=== PATIENT | male | born 1990 | race Caucasian/White ===

== ENCOUNTER 2020-04-25 21:49 | Emergency (ER) | payer SELFPAY ==
[2020-04-25 21:50] VITALS: BP 159/94; PULSE 112; RESP 20; TEMP 36.3; O2SAT 99; BMI 29.2
--- NOTE | 2020-04-25 22:00 | ED.DCSUM_ITS ---
History of Present Illness Chief Complaint: Lower Extremity Injury Informant: Patient Onset: Today Current Severity: Mild Maximum Severity: Moderate Narrative: Patient presents with right foot pain after slipping off his deck. He states he fell approximately 3 feet, landed on a rock and rolled his right ankle. He has pain over the right midfoot and lateral right ankle. He has been able to weight-bear but has antalgic gait. He denies any other injury. Past Medical History - Allergies and Home Meds Allergies/Adverse Reactions: Allergies No Known Allergies Allergy (Verified 04/25/20 21:59) Primary Care Physician: Care Physician,No Primary [Primary Care Provider] - Past Medical History: None Smoking Status: Current every day smoker Review of Systems General: Denies: Chills, Fever Eyes: Denies: Visual changes - bilaterally ENT: Denies: Bilateral ear pain Cardiovascular: Denies: Chest pain Respiratory: Denies: Dyspnea Gastrointestinal: Denies: Abdominal pain Musculoskeletal: Reports: Swelling, Extremity Pain Skin: Denies: Rash Neurological: Denies: Headache Hematologic: Denies: Easy bruising, Easy bleeding Allergy: Denies: Uticaria Physical Exam Vital Signs/Narrative: Vital Signs Temp Pulse Resp BP Pulse Ox 04/25/20 21:50 97.4 F L 112 H 20 H 159/94 H 99 Inital Vital Signs reviewed: Yes General: Well nourished, Well developed Head: Normocephalic Neck: Supple Cardiovascular: Regular rate, Regular rhythm Respiratory: No distress, CTA bilaterally Abdomen: Soft, Nontender Extremities: - - Tenderness palpation of the right midfoot with mild edema. Tenderness to the right lateral malleolus. No tenderness at the knee. Strong distal pulses with good cap refill. Skin: Normal color Neurological: Alert, Oriented x3 Psychological: Normal affect Diagnostic/Tx/Re-eval Impressions Ankle X-Ray 04/25/20 22:03 IMPRESSION: Normal x-ray examination of the ankle. Electronically Signed: Julien Mak MD at 22:28 EST , Service support , 04/25/20 22:03 Ankle min 3 Views [RAD] Stat Foot min 3 Views [RAD] Stat - Medical Decision Making Right foot and ankle x-rays are obtained and per my interpretation reveal no fracture. Patient is given naproxen for pain. Test results discussed with him and foot and ankle wrapped in Peña wrap. He will be given crutches and may weight-bear as tolerated. He is given work note stating he must be able to use crutches as needed. ED Disposition - Plan for ED Patient: Disposition: Home or Assisted Living Diagnosis: Right foot sprain Instructions: ED Foot Sprain Prescriptions: Naproxen [Naprosyn] 500 mg PO BID PRN PRN #20 tab PRN Reason: Pain Score 4-10 Transmission Status: Pending to [facility] Referrals: Timo Briseno DO [STAFF PHYSICIAN] - 1 Week if not improving
[2020-04-25] MEDS: Naproxen 500 MG Tablet PO (22:01)
--- NOTE | 2020-04-25 22:03 | RAD_ITS ---
STUDY: X-RAY - RIGHT ANKLE REASON FOR EXAM: Male, 30 years old. FALL OFF DECK, RIGHT FOOT PAIN. PAIN ALONG LATERAL SIDE OF FOOT AND LATERAL ANKLE TECHNIQUE: 3 view(s) of the ankle. COMPARISON: None. FINDINGS: Normal visualized distal tibia and fibula. Normal medial and lateral malleoli. Normal tibiotalar articulation and ankle mortise. Normal visualized talus and calcaneus. The visualized subtalar, talonavicular, calcaneocuboid and tarsal articulations are normal. There is no demonstrated fracture. The soft tissue structures are unremarkable. RAD/Ankle min 3 Views IMPRESSION: Normal x-ray examination of the ankle. Electronically Signed: Julien Mak MD at 22:28 EST , Service support ,
--- NOTE | 2020-04-25 22:03 | RAD_ITS ---
STUDY: X-RAY - RIGHT FOOT CLINICAL: Male, 30 years old. PAIN ALONG LATERAL SIDE OF FOOT AFTER FALLING OFF DECK TECHNIQUE: 3 view(s) of the foot. COMPARISON: None. FINDINGS: Normal talus, calcaneus, and tarsal bones. Normal visualized subtalar, talonavicular, calcaneocuboid, tarsal and tarsometatarsal articulations. Normal metatarsi. Normal metatarsophalangeal joint of the great toe. Normal tibial and fibular sesamoid bones. Normal interphalangeal joint of the great toe. Normal phalanges of the great toe. Normal second through fifth metatarsophalangeal joints. Normal interphalangeal joints and phalanges of the lesser toes. The soft tissue structures are unremarkable. There is no demonstrated fracture. RAD/Foot min 3 Views IMPRESSION: Normal x-ray examination of the foot. Electronically Signed: Julien Mak MD at 22:29 EST , Service support ,
== END 2020-04-25 22:45 | disposition home or self-care (01) ==
LOC: ED 22:41
PROVIDERS: Emergency Provider Emergency Medicine
DX: S93.601A Unspecified sprain of right foot, initial encounter (principal); F17.200 Nicotine dependence, unspecified, uncomplicated; W17.89XA Other fall from one level to another, initial encounter
CPT/HCPCS: 73610; 73630; 99284

== ENCOUNTER 2022-05-05 08:58 | Emergency (ER) | payer OTHER, SELFPAY ==
[2022-05-05 08:59] VITALS: BP 154/91; PULSE 72; RESP 16; TEMP 36.4; O2SAT 99; BMI 28.8
--- NOTE | 2022-05-05 09:27 | ED.RN ---
THIS RN TALKED WITH MICHAEL FROM [facility]. 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
--- NOTE | 2022-05-05 10:28 | EDS_ITS ---
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, causing a 2 arc and hit the table where his hand was, injuring his right hand Onset/Context/Timing Onset: Today Context: Sudden Onset Timing: Continuous Quality of Pain: - (So) Location: Right hand/fingers Current Severity: Mild Maximum Severity: Mild Associated Symptoms Associated Symptoms: Negative for Parasthesia, Weakness or Loss of Funtion Narrative Tetanus Immunization: 5-10 years PFSH PFS Medical History no medical history no medical history Home Medications NK 05/05/22 [History Last Taken Unknown] Allergy/AdvReac Type Severity Reaction Status Date / Time No Known Allergies Allergy Verified 05/05/22 09:05 Social History Smoking Status: Current every day smoker tobacco type: cigarettes alcohol intake: current ROS ROS ED Constitutional Constitutional ED: Denies chills or fever(s) Musculoskeletal Musculoskeletal: Reports extremity pain; Denies neck pain Integumentary Reports wounds; Denies Abrasions or rash Neurologic Neurologic: Denies paresthesias or weakness EXAM Physical Exam Const Vital Signs: 05/05/22 08:59 05/05/22 09:17 Temperature 97.6 F L Temperature Source Temporal Pulse Rate 72 Respiratory Rate 16 Respiratory Effort Normal Respiratory Depth Normal Respiratory Pattern Normal Blood Pressure 154/91 H Blood Pressure Mean 112 Pulse Ox 99 Oxygen Delivery Method Room Air Positive well nourished and well developed General Appearance ED: well developed and NAD Neck full ROM and supple Back/Spine normal ROM and normal to inspection Extremity full ROM Extremity Narrative: Patient has focal singed superficial wound/lacerations with associated first- degree parikh across the middle phalanx of the right index finger, middle finger, and ring finger. There is no bleeding, the tenderness is very mild, he has full range of motion, and these lacerations are cutaneous in depth. None are subcutaneous. Neuro oriented x3, no focal motor deficits and no sensory deficits noted Sensorium / Orientation: alert Psych mental status grossly normal and thought process normal Skin Skin Narrative: See above. Superficial wounds limited to the fingers of the right hand. Index finger 1 cm, middle finger 1 cm, ring finger 0.5 cm, small finger 0.25 cm. Rashes: no rashes MDM MDM MDM Narrative Medical decision making narrative: These are superficial wounds that are singed, there is no necrotic tissue, there is no tissue loss, and they are very superficial and I would treat them conservatively with bacitracin and a Band-Aid to all of these areas. The patient is not in a lot of pain, there is no second or third-degree burn here, I do not think any of this needs to be sutured. The patient feels he can likely continue to do his job in this condition and I am fine with that. He does not need a tetanus update. These are low risk for infection. Discharge Plan Triage Chief Complaint: Burn ED Provider: Constantino Moran Dx/Rx/DC Orders Clinical Impression: First degree burn of multiple fingers of right hand excluding thumb, Superficial laceration of finger Instructions: ED Burn, First-Degree Prescriptions: No Action NK Stand Alone Forms: Work Status Form Primary Care Provider: Care Physician,No Primary Referrals: Corporate,Care [Group of Physicians] - 3-5 Days if not improving Care Physician,No Primary [Primary Care Provider] - Disposition Disposition: Home, Self Care
== END 2022-05-05 10:42 | disposition home or self-care (01) ==
PROVIDERS: Emergency Provider Emergency Medicine; Visit Provider Emergency Medicine
DX: T23.131A Burn of first degree of multiple right fingers (nail), not including thumb, initial encounter (principal); S61.210A Laceration without foreign body of right index finger without damage to nail, initial encounter; S61.212A Laceration without foreign body of right middle finger without damage to nail, initial encounter; S61.214A Laceration without foreign body of right ring finger without damage to nail, initial encounter; F17.210 Nicotine dependence, cigarettes, uncomplicated; Y99.0 Civilian activity done for income or pay; W22.8XXA Striking against or struck by other objects, initial encounter
CPT/HCPCS: 99282

== ENCOUNTER 2024-12-31 16:09 | Emergency (ER) | payer OTHER, SELFPAY ==
[2024-12-31 16:10] VITALS: BP 155/102; PULSE 95; RESP 24; TEMP 36.4; O2SAT 100; BMI 31.5
--- NOTE | 2024-12-31 16:17 | EDS_ITS ---
HPI History of Present Illness Chief Complaint: Allergic Reaction Detail of Chief Complaint: Allergic reaction Informant: patient Onset/Context/Timing Onset: Yesterday (Reports he was stung yesterday dorsal surface right) Context: Gradual Onset Timing: Continuous Quality: Initially swelling of his hand right ring finger Location: Generalized in HPI narrative Current Severity: Moderate Maximum Severity: Moderate Worsened by: Uncertain Relieved by: Nothing Associated Symptoms Associated Symptoms: Swelling lower lip left side, throat tightness fullness Narrative Narrative: Patient is a 34-year-old male. He states he was stung by a insect it was either a wasp or hornet yesterday. He was stung dorsal surface right ring finger over the proximal phalanx. Patient states he was seen at outside facility. He was told that the swelling of his hand and fingers is normal. Patient took a nap. Upon awakening he noted the swelling of his lower lip, swelling of his neck and discomfort in his hand. He was unaware that he had a blotchy rash on his right upper extremity torso possibly face. There is swelling of the lower lip. Prior similar symptoms: No Recent Illness/Hospitalization: No PFSH PFSH Medical History no medical history Home Medications ?Medication ?Instructions ?Recorded ?Last Taken ?Type epinephrine 0.3 mg/0.3 mL 0.3 mg (0.3 mL) IM .once PRN 12/31/24 Unknown Rx injection, auto-injector (EpiPen) anaphylaxis #1 ea famotidine 20 mg tablet (Pepcid) 20 mg PO BID #7 tabs 12/31/24 Unknown Rx prednisone 20 mg tablet 60 mg (3 x 20 mg) PO DAILY # 9 12/31/24 Unknown Rx TABLETS Allergy/AdvReac Type Severity Reaction Status Date / Time No Known Allergies Allergy Verified 12/31/24 16:10 Social History Smoking Status: Current every day smoker tobacco type: cigarettes alcohol intake: current ROS ROS ED Constitutional Constitutional ED: Denies chills, fever(s), subjective or sweats Eyes Eyes: Denies blurry vision or change in vision ENT ENT ED: Denies ear pain, rhinorrhea or sore throat Cardiovascular Cardiovascular: Denies chest pain, orthopnea, palpitations, paroxysmal nocturnal dyspnea or racing heartbeat Respiratory/Chest Respiratory/Chest: Reports other Details: There is no wheezing, rhonchi ; Denies cough, dyspnea, dyspnea on exertion, orthopnea, paroxysmal nocturnal dyspnea or sputum Gastrointestinal Gastrointestinal: Denies abdominal pain, nausea or vomiting Genitourinary Genitourinary ED: Denies dysuria, hematuria or urinary frequency Musculoskeletal Musculoskeletal: Denies arthralgias, back pain or myalgias Integumentary Reports rash Neurologic Neurologic: Denies paresthesias or weakness Hematologic/Lymphatic Hematologic/Lymphatic: Reports systems reviewed and no addt'l complaints, except as documented EXAM Physical Exam Const Vital Signs: 12/31/24 16:10 12/31/24 17:09 12/31/24 18:00 Temperature 97.6 F L 98.1 F 98 F Temperature Source Temporal Oral Oral Pulse Rate 95 84 74 Respiratory Rate 24 H 14 16 Blood Pressure 155/102 H 138/79 H 136/74 H Blood Pressure Mean 119 98 94 Pulse Ox 100 99 99 Oxygen Delivery Method Room Air Positive well nourished and well developed Constitutional Narrative: Patient's hand is mottled. There is delayed capillary refill. Patient states the sensation in his fingers is abnormal. He does not have paralysis. He does not have pain with passive flexion extension. General Appearance ED: well developed and NAD; Negative for cyanotic, diaphoretic or pallor HEENT Reports moist mucous membranes HEENT Narrative: Head is atraumatic and normocephalic. Ears normal. Posterior pharynx without erythema or exudate. There is no swelling of the uvula or tongue. There is slight swelling of the lower lip on the left side. Eyes PERRL and EOMs intact bilaterally General Eye ED: Negative for pale conjunctiva or scleral icterus Neck no lymphadenopathy, supple and no JVD Chest Wall inspection of chest normal and palpation of chest normal Resp normal respiratory effort and clear to auscultation bilaterally Cardio regular rate, regular rhythm, S1 normal heart sound, S2 normal heart sound and no murmurs GI normal to inspection, nondistended, normoactive bowel sounds, non-tender, non- distended and no masses; Negative for hepatosplenomegaly Extremity Negative for normal to inspection Extremity Narrative: There is swelling of the right upper extremity from the elbow distally to his fingers. There is delayed capillary refill in his right upper extremity. He reports abnormal sensation. He was not able to discern 2 point discrimination on the right side. Neuro oriented x3, CN's II-XII intact bilaterally and No no sensory deficits noted Sensorium / Orientation: alert Psych mental status grossly normal Skin No no rashes or lesions noted, no wounds and skin turgor normal Skin Narrative: Blotchy erythematous blanching rash noted right upper extremity and torso. General Skin Exam: Negative for jaundice or pallor MDM MDM MDM Narrative Medical decision making narrative: Patient with atypical presentation for allergic reaction. Will treat with epinephrine, month Solu-Medrol, Pepcid and Benadryl. Will continue to observe. If his hand does not improve we will contact Dr. Anthony Mei since 1 needs to consider compartment syndrome. Treatment and Re-Evaluation :: Patient was reassessed at 1648. His hand is less swollen. He is no longer mottled. There is still delay in his capillary refill. He states he has more sensation in his fingers. Patient was reassessed at 1747. Patient states he feels much better. His lip is no longer swollen. His rash is resolved. His hand is not as swollen. He states he has sensation and does not have discomfort with moving of his fingers. And when asked what he meant by discomfort, he responded tightness due to the swelling. Patient was reassessed at 1849. Patient hand is less swollen. Capillary refill is within normal limits. He has more movement of his hand. His rash has resolved. His angioedema involving his lip has resolved. Critical Care Time Critical Care Time: Yes Critical care time (excluding procedures): 30-74 minutes (32), Including time spent: (History, physical, documentation, repeat evaluations during the emergency stay of 4 hours. Treatment for generalized allergic reintroduction and allergic angioedema.) and Discussing w/Patient &/or Family/[employer] Discharge Plan Triage Chief Complaint: Allergic Reaction ED Provider: Daniel Woodward Dx/Rx/DC Orders Clinical Impression: Allergic reaction, Allergic angioedema, Elevated blood pressure reading without diagnosis of hypertension Instructions: ED General Allergic Reactions, ED Angioedema, ED Hypertension, To Be Confirmed Prescriptions: New famotidine [Pepcid] 20 mg tablet 20 mg PO BID Qty: 7 0RF prednisone 20 mg tablet 60 mg PO DAILY Qty: 9 0RF epinephrine [EpiPen] 0.3 mg/0.3 mL auto-injector 0.3 mg IM .once PRN (Reason: anaphylaxis) Qty: 1 3RF Rx Instructions: for 2 doses Primary Care Provider: Care Physician,No Primary Referrals: Care Physician,No Primary [Primary Care Provider, Medical] Activity Restrictions/Additional Instructions: You need to carry the EpiPen with you at all times. You cannot leave it in your car when it is warm because it will cause the medicine to degrade. Take medication as prescribed. Your blood pressure is elevated. Recommend follow-up with your doctor for blood pressure check and 1 to 2 weeks Print Language: Belarusian Disposition Disposition: Home, Self Care
[2024-12-31] MEDS: 0.9% Normal Saline (1000mL) 1,000 ML 999 ML IV (16:21)
[2024-12-31] MEDS: Epi Pen (EQUIV) 0.3 MG Syringe IM (16:21)
[2024-12-31] MEDS: DiphenhydrAMINE 50 MG/ML Syringe IV (16:21)
[2024-12-31] MEDS: Famotidine 200 MG/20 ML MDV 20 MG in 0.9% Normal Saline (Pres. free 8 ML 300 MG IV (16:40)
[2024-12-31 17:09] VITALS: BP 138/79; PULSE 84; RESP 14; TEMP 36.7; O2SAT 99
[2024-12-31 18:00] VITALS: BP 136/74; PULSE 74; RESP 16; TEMP 36.6; O2SAT 99
--- NOTE | 2024-12-31 18:56 | CM.ED ---
Social work Reason for referral: no PCP Referral source: case find SW recognized patient's lack of PCP and need for resources. SW entered patient's room, introducing self and role at [facility]. Patient confirmed lacking a PCP and accepted resources of [facility] Provider Directory and [facility] information. Patient asked for a drink which was approved by [employer]. Patient denied further needs. Beth Guadarrama, ASSISTANT STORE DIRECTOR, DRIVER/[employer]
[2024-12-31 20:25] VITALS: BP 146/92; PULSE 88; RESP 17; TEMP 36.6; O2SAT 97
== END 2024-12-31 20:33 | disposition home or self-care (01) ==
PROVIDERS: Emergency Provider Emergency Medicine; Visit Provider Emergency Medicine
DX: T63.441A Toxic effect of venom of bees, accidental (unintentional), initial encounter (principal); T78.3XXA Angioneurotic edema, initial encounter; R03.0 Elevated blood-pressure reading, without diagnosis of hypertension; Z79.899 Other long term (current) drug therapy; F17.210 Nicotine dependence, cigarettes, uncomplicated
CPT/HCPCS: 99283; A4216